=== PATIENT | female | born 1975 | race Caucasian/White ===

== ENCOUNTER 2017-08-23 20:00 | Inpatient (IN) | payer MEDICAID, OTHER, SELFPAY ==
[2017-08-23 20:29] VITALS: BMI 30.4
[2017-08-23] MEDS: Lactated Ringer's 1,000 ML IV SCH (20:45)
[2017-08-23] MEDS ORDERED: Ondansetron HCl/PF 4 MG/2 ML Vial IVP PRN (22:17)
[2017-08-23] MEDS ORDERED: HYDROcodone/Acetaminophen 5/325 mg Tablet PO PRN ×2 (22:17)
[2017-08-23] MEDS ORDERED: Ibuprofen 800 MG TAB PO PRN (22:17)
[2017-08-23] MEDS ORDERED: NS / Oxytocin 40 units/1000ml 1,000 ML IV PRN (22:17)
[2017-08-23] MEDS ORDERED: Lidocaine 1% (PF) 30 ML VIAL SC PRN (22:17)
[2017-08-23] MEDS ORDERED: Promethazine HCl 25 MG/ML VIAL IM PRN (22:17)
--- NOTE | 2017-08-23 22:23 | PDOC.LDHP ---
Labor and Delivery H&P Chief complaint: scheduled induction HPI: Patient is a 42yo at 38.6w by LMP/1t u/s with chronic HTN presents for IOL via TOLAC with cook balloon. Patient reports good FM, no LOF, VB, vaginal discharge, COHEN, LE edema, scotoma, or RUQ pain. She reports BP at home have been in the 130's/80's. Risks of TOLAC have been discussed with her PCP Dr. Lesley Dominique and patient had no further questions. Current gestational age (weeks): 38 (38.6) Due date: 08/31/17 Dating criteria: last menstrual period, first trimester ultrasound Grav: 3 Para: 2 OB History Details: first - delivered at 35wk with PPROM, breech, csection delivery second - successful TOLAC, complications of elevated BP during Current complications: hypertension Abnormal US findings: No Past Medical History: chronic HTN Current medications: pre-anabell vitamins Previous surgical history: low tranverse CS Social history: none - Physical Exam Vital signs reviewed and normal: yes General: NAD, resting Heart: other (systolic murmur, RRR) Lungs: CTAB Abdomen: NTTP Extremeties: trace edema FHT: category 1 [place] contractions every: none - Vaginal Exam cm dilated: 1 Effacement: 0% Station: -3 - OB Labs Blood type: O RH: positive Antibody Screen: negative HIV: negative RPR: negative HEPSAg: negative 1 hour GCT: negative GBS: negative Urine drug screen: not done Rubella: immune - Assessment L&D Assessment: medically indicated induction at 38.6 here for medically indicated induction due to chronic HTN. Will be a TOLAC, with hx of successful x1. sIUP: labs wnl chronic HTN: BP wnl, continue to monitor. AMA: declined quad screen. TOLAC: risks discussed in clinic and again today. Labor: cat 1 strip at this time, balloon placed at 2220 with 60ml in each balloon. Patient tolerated well. Continue routine labor management and q4h balloon checks. Plan for epidural for pain management. Consider augmentation with pitocin if needed upon further evaluation - Plan Plan: admit to L&D, labor augmentation if indicated <Halina Ruano - Last Filed: 08/23/17 22:21> <Alex Hunter - Last Filed: 08/23/17 23:07> Allergies/Adverse Reactions: Allergies Allergy/AdvReac Type Severity Reaction Status Date / Time No Known Allergies Allergy Verified 02/20/16 21:52 Attending Addendum - Attending Addendum Date/Time: 08/23/17 7102 I personally evaluated the patient and discussed the management with Dr. Ruano. I agree with and repeated the History, Examination, Assessment and Plan documented above with any addition or exceptions noted below. Patient understands risks of TOLAC - uterine rupture 1:150, catastrophic outcome , such as maternal or 1:1000, pain, bleeding, infection, prolonged hospitalization, risk for injury to surrounding structure and associated repair/ colostomy/FC placement, and risks associated with transfusion. Chronic hypertension, AMA, GBS negative. Cook balloon placed in sterile fashion with speculum and ring forceps. 60 cc/60 cc. Discussed in detail with Dr. Dominique. <Alex Hunter - Last Filed: 08/23/17 23:07>
[2017-08-23 23:04] LABS: Hemoglobin 11.8 g/dL (12.0-16.0); Mean Corpuscular HGB CONC 36.3 g/dL (32.0-36.0); Mean Corpuscular Volume 85.5 fL (78.0-98.0); Mean Platelet Volume 8.5 fL (7.4-10.4); Platelet Count 162 thou/uL (130-400); RBC Distribution Width 12.5 % (11.5-14.5); Red Blood Cell (RBC) Count 3.81 mill/uL (4.20-5.40); White Blood Cell (WBC) Count 5.3 thou/uL (4.8-10.8)
[2017-08-23 23:32] LABS: Syphilis Antibody Nonreactive (Nonreactive); Syphilis Antibody Index 0.04 S/CO (<1.00 Non-Reactive)
[2017-08-23 23:33] LABS: HBSAg Index 0.21 S/CO (0-0.99); Hep B Surf Ag Non-Reactive S/CO (NonReactive)
[2017-08-24] MEDS ORDERED: Butorphanol Tartrate 1 MG/ML VIAL SLOW IVP PRN (00:57)
[2017-08-24] MEDS ORDERED: DISCONTINUE ALL PREVIOUS NARCOTICS FS SCH (02:00)
[2017-08-24] MEDS: Lactated Ringer's 1,000 ML IV SCH ×4 (02:10→15:00)
--- NOTE | 2017-08-24 02:24 | PDOC.LDPN ---
Labor & Delivery Progress Note - Subjective Subjective: comfortable - Objective Vital signs reviewed and normal: yes General: NAD, resting Uterine fundus: palpable contractions Dilation: 4 FHT: category 1 [place] contractions every: q4-5 min - Assessment (1) Current Visit: Yes Status: Acute (2) Desires (vaginal after ) trial Code(s): O34.219 - MATERNAL CARE FOR UNSP TYPE SCAR FROM PREVIOUS DEL Current Visit: Yes Status: Acute -: at 38.6 here for medically indicated induction due to chronic HTN. Will be a TOLAC, with hx of successful x1. sIUP: IOL reviewed, wnl chronic HTN: BP slightly elevated at 140's systolic, continue to monitor. AMA: declined quad screen. TOLAC: risks discussed in clinic and again today. Labor: cat 1 strip at this time, balloon placed at 2220 with 60ml in each balloon, has progressed to 4cm in dilation. Continue routine labor management and q2h balloon checks. Plan for epidural for pain management. Consider augmentation with pitocin if needed upon further evaluation <Halina Ruano - Last Filed: 08/24/17 02:49> Attending Addendum - Attending Addendum Date/Time: 08/24/17618 I personally evaluated the patient and discussed the management with Dr. Ruano I agree with the History, Examination, Assessment and Plan documented above with any addition or exceptions noted below. Hold off on pitocin until balloon out and no change. Cat 1. <Alex Hunter - Last Filed: 08/24/17 06:20>
[2017-08-24] MEDS: Bupivacaine 0.75% 13.4 ML, fentaNYL Citrate/PF 400 MCG in Sodium Chloride 0.9% 78.6 ML EPIDURAL SCH ×3 (02:55→15:33)
[2017-08-24] MEDS ORDERED: Eucerin (Mineral Oil/Petrolatum,White) 30 gm Jar TOP PRN (02:58)
[2017-08-24] MEDS ORDERED: diphenhydrAMINE 50 MG/ML VIAL IVP PRN (02:58)
[2017-08-24] MEDS ORDERED: Naloxone HCl 0.4 mg/ml Vial IVP PRN ×2 (02:58)
[2017-08-24] MEDS ORDERED: Acetaminophen 325 MG TAB PO PRN (02:58)
[2017-08-24] MEDS ORDERED: ePHEDrine/0.9% NaCl/PF SYRINGE 50 mg/10 ml SLOW IVP PRN (02:58)
[2017-08-24] MEDS ORDERED: Lactated Ringer's 500 ML IV PRN (02:58)
[2017-08-24] MEDS ORDERED: Promethazine HCl 25 MG/ML VIAL IM PRN (02:58)
[2017-08-24] MEDS ORDERED: Ondansetron HCl/PF 4 MG/2 ML Vial IVP PRN (02:58)
[2017-08-24] MEDS ORDERED: fentaNYL Citrate/PF 400 MCG, Bupivacaine 0.5% 20 ML in Sodium Chloride 0.9% 72 ML EPIDURAL SCH (03:00)
[2017-08-24] MEDS ORDERED: Communication Order-Pharmacy FS SCH (03:00)
--- NOTE | 2017-08-24 05:00 | PDOC.LDPN ---
Labor & Delivery Progress Note - Subjective Subjective: comfortable - Objective Vital signs reviewed and normal: yes General: NAD Uterine fundus: palpable contractions Dilation: 5 Effacement: 50% Station: -2 FHT: category 1 [place] contractions every: 4-5min - Assessment (1) Current Visit: Yes Status: Acute (2) Desires (vaginal after ) trial Code(s): O34.219 - MATERNAL CARE FOR UNSP TYPE SCAR FROM PREVIOUS DEL Current Visit: Yes Status: Acute -: at 38.6 here for medically indicated induction due to chronic HTN. Will be a TOLAC, with hx of successful x1. sIUP: IOL reviewed, wnl chronic HTN: BP wnl, continue to monitor. AMA: declined quad screen. TOLAC: risks discussed in clinic and again today. Labor: cat 1 strip at this time, balloon placed at 2220 with 60ml in each balloon, removed now. SVE 5/60/-2. Continue routine labor management and q2h cervical checks. Epidural in place for pain management. Consider augmentation with pitocin if needed upon further evaluation. <Halina Ruano - Last Filed: 08/24/17 04:58> Attending Addendum - Attending Addendum Date/Time: 08/24/17622 I personally evaluated the patient and discussed the management with Dr. Ruano. I agree with the History, Examination, Assessment and Plan documented above with any addition or exceptions noted below. Cat 1, q4-5m, making some change after removal of balloon. If no change will evaluation for rupture, IUPC, and pitocin. <Alex Hunter - Last Filed: 08/24/17 06:23>
--- NOTE | 2017-08-24 07:50 | PDOC.LDPN ---
Labor & Delivery Progress Note - Objective Vital signs reviewed and normal: yes General: NAD, resting SVE: 5/50%/-2 FHT: category 1 [place] contractions every: q5-6 min - Assessment (1) Current Visit: Yes Status: Acute Qualifiers: Weeks of gestation: 39 weeks Qualified Code(s): Z3A.39 - 39 weeks gestation of -: 1) IUP @ 39 weeks admitted for induction due to cHTN- Balloon placed last night and removed early this morning. Pt comfortable. minimal change from prior exam. Will start pitocin and continue to monitor closely. AROM when head more engaged.
[2017-08-24] MEDS: NS w/ Oxytocin 10 units 500 ML IV SCH (08:02)
--- NOTE | 2017-08-24 10:44 | PDOC.LDPN ---
Labor & Delivery Progress Note - Subjective Subjective: comfortable - Objective Vital signs reviewed and normal: yes (123/68) General: NAD, resting Dilation: 6cm Effacement: 50% Station: -2 FHT: category 1 - Assessment (1) Desires (vaginal after ) trial Code(s): O34.219 - MATERNAL CARE FOR UNSP TYPE SCAR FROM PREVIOUS DEL Current Visit: Yes Status: Acute (2) Current Visit: Yes Status: Acute Qualifiers: Weeks of gestation: 39 weeks Qualified Code(s): Z3A.39 - 39 weeks gestation of Plan: resuscitative measures -: at 38.6 here for medically indicated induction due to chronic HTN. Will be a TOLAC, with hx of successful x1. sIUP: IOL reviewed, wnl chronic HTN: BP wnl, continue to monitor. AMA: declined quad screen. TOLAC: risks discussed in clinic and again today. Labor: cat 1 strip at this time, balloon placed at 2220 with 60ml in each balloon, removed 0300. SVE 6/50/-2, unchanged from last check. Epidural in place. - titrate up level of pitocin and continue q2 hr labor checks
--- NOTE | 2017-08-24 12:08 | PDOC.LDPN ---
Labor & Delivery Progress Note - Subjective Subjective: comfortable - Objective Vital signs reviewed and normal: yes General: NAD, resting Uterine fundus: non tender SVE: 6/80/-1 after AROM FHT: category 1, variability present [place] contractions every: 2-3 min AROM: clear fluid IUPC placed: yes Resuscitative measures: maternal position change - Assessment (1) Desires (vaginal after ) trial Code(s): O34.219 - MATERNAL CARE FOR UNSP TYPE SCAR FROM PREVIOUS DEL Current Visit: Yes Status: Acute (2) Current Visit: Yes Status: Acute QualifierTitle: Weeks of gestation: 39 weeks Qualified Code(s): Z3A.39 - 39 weeks gestation of (3) Chronic hypertension in obstetric context, antepartum Code(s): O10.919 - UNSP PRE-EXISTING HTN COMP , UNSP TRIMESTER Current Visit: Yes Status: Acute Plan: continue plan of care, pitocin for augmentation -: at 38.6wks here for medically indicated induction due to chronic HTN and desires for TOLAC. Prior OB hx sig for successful . Continue expectant mgmt and titrate pitocin per protocol. <Rina Argueta - Last Filed: 08/24/17 12:09> Attending Addendum - Attending Addendum Date/Time: 08/24/17 1309 I personally evaluated the patient and discussed the management with Dr. Argueta I agree with the History, Examination, Assessment and Plan documented above with any addition or exceptions noted below. Pt AROMed for moderate amount of clear fluid. IUPC placed. 6/80/-1, [place] FHT 120/moderate variability/accels present/no decels Cat I FHT, reassuring. Continue pitocin per TOLAC protocol Anticipate <Nicole Lemos - Last Filed: 08/24/17 13:11>
--- NOTE | 2017-08-24 13:47 | PDOC.LDPN ---
Labor & Delivery Progress Note - Subjective Subjective: vaginal pressure - Objective Abnormal vital signs: BP: 159/91 General: resting SVE: 7 Effacement: 90% Station: -1 FHT: category 2, variable decelerations [place] contractions every: 2 minutes - Assessment (1) Chronic hypertension in obstetric context, antepartum Code(s): O10.919 - UNSP PRE-EXISTING HTN COMP , UNSP TRIMESTER Current Visit: Yes Status: Acute (2) Desires (vaginal after ) trial Code(s): O34.219 - MATERNAL CARE FOR UNSP TYPE SCAR FROM PREVIOUS DEL Current Visit: Yes Status: Acute (3) Current Visit: Yes Status: Acute QualifierTitle: Weeks of gestation: 39 weeks Qualified Code(s): Z3A.39 - 39 weeks gestation of Plan: continue plan of care -: Pt making cervical change. Variable decels noted during cervical check, however have recovered with position changes. Continue labor augmentation with Pit. Will re-check in 2 hours or sooner if needed. Regarding pt's elevated BP, will rule out pre-e with labs including CBC, CMP, Uric acid, Urine protein/creatine. <Leonora Carver - Last Filed: 08/24/17 13:46> Attending Addendum - Attending Addendum Date/Time: 08/24/17 7592 I personally evaluated the patient and discussed the management with Dr. Carver I agree with the History, Examination, Assessment and Plan documented above with any addition or exceptions noted below. Patient undergoing TOLAC. Cat 2 tracing. Resuscitative measures taken. Pitocin stopped. tracing improved. BP reviewed over last hour. BP has been slowly rising and now above baseline. PreE labs performed. Patient denies symptoms of preE. On labs patient noted to have uric acid of 5.2 and urine pro/cr ratio of 0.344. Also platelets have decreased from 160s to 130s. Will discuss with PCP and managing attending but concern for superimposed preE. Will need to review baseline urine protein. At this time remains without severe features and no indication for mag sulfate. Alvaro <Nica Nicholson - Last Filed: 08/26/17 04:20>
[2017-08-24 14:25] LABS: Hemoglobin 12.1 g/dL (12.0-16.0); Mean Corpuscular HGB CONC 35.1 g/dL (32.0-36.0); Mean Corpuscular Hemoglobin 30.2 pg (27.0-31.0); Platelet Count 138 thou/uL (130-400); RBC Distribution Width 12.3 % (11.5-14.5); Red Blood Cell (RBC) Count 4.02 mill/uL (4.20-5.40); White Blood Cell (WBC) Count 8.8 thou/uL (4.8-10.8)
[2017-08-24] MEDS ORDERED: Lactated Ringer's 500 ML IV SCH (14:45)
[2017-08-24 14:46] LABS: ALT (SGPT) 8 U/L (8-55); AST (SGOT) 15 U/L (5-34); Albumin 3.3 g/dL (3.5-5.0); Alkaline Phosphatase 105 U/L (40-150); Anion Gap 11 mmol/L (10-20); BUN (Urea Nitrogen) 5 mg/dL (7.0-18.7); Bilirubin, Total 0.4 mg/dL (0.2-1.2); Calc. Creatinine Clearance 188 mL/min (70-130); Calcium 8.3 mg/dL (7.8-10.44); Carbon Dioxide 22 mmol/L (22-29); Chloride 105 mmol/L (98-107); Estimated GFR-MDRD Greater than 90; Glucose 79 mg/dL (70-105); Potassium 3.7 mmol/L (3.5-5.1); Protein, Total 6.3 g/dL (6.0-8.3); Sodium 134 mmol/L (136-145); Uric Acid 5.2 mg/dL (2.6-6.0)
[2017-08-24] MEDS ORDERED: Lidocaine 1% (PF) 30 ML VIAL ONE (15:04)
[2017-08-24 15:24] LABS: Creatinine, Urine 37.69 mg/dL (47-110)
[2017-08-24] MEDS: NS / Oxytocin 40 units/1000ml 1,000 ML IV SCH ×2 (15:45→18:15)
[2017-08-24] MEDS ORDERED: Milk Of Magnesia 30 ML UDCUP PO PRN (15:53)
[2017-08-24] MEDS ORDERED: Adacel (T-DAP) 0.5 ML VIAL IM ONE (15:53)
[2017-08-24] MEDS ORDERED: Lanolin Ointment 7 GM TUBE TOP PRN (15:53)
[2017-08-24] MEDS ORDERED: HYDROcodone/Acetaminophen 5/325 mg Tablet PO PRN (15:53)
[2017-08-24] MEDS ORDERED: Bisacodyl 10 MG SUPP PR PRN (15:53)
[2017-08-24] MEDS ORDERED: Benzocaine/Menthol 20-0.5% 60 ML CAN TOP PRN (15:53)
[2017-08-24] MEDS ORDERED: Ibuprofen 800 MG TAB PO SCH (16:00)
--- NOTE | 2017-08-24 16:03 | PDOC.OPDEL ---
OB Operative/Delivery Note Delivery Dr/Surgeon: Dr. Olvin Jewell, Dr. Leonora Carver Assist: Dr. Lesley Dominique (Attending) Pre-Delivery Diagnosis: medically indicated induction (chronic hypertension, TOLAC) Procedure/Post Delivery Dx: spontaneous vaginal delivery Weeks gestation: 39 Anesthesia: epidural - Findings A Sex: male - 1 min: 8 - 5 min: 9 - Additional Findings/Plan Placenta delivered: spontaneous Repaired Obstetrical Laceration: none Estimated blood loss: 150 Post delivery plan: routine recovery <Olvin Jewell - Last Filed: 08/24/17 16:01> Attending Addendum - Attending Addendum Date/Time: 08/24/172235 I was present and supervised the of a viable female over an intact perineum. Apgars 8/9. Placenta delivered spontaneously and intact. 3V cord. True knot noted in cord. and mother in stable condition. Residents: Tania Handley. EBL 150 mL <Lesley Dominique - Last Filed: 08/24/17 22:41>
[2017-08-24] MEDS: Ferrous Sulfate 325 MG TAB PO SCH (20:57)
[2017-08-24] MEDS: Docusate Calcium (SURFAK) 240 MG CAP PO SCH (21:19)
--- NOTE | 2017-08-25 01:33 | OP-2 ---
DELIVERING PHYSICIAN: Olvin Jewell MD and Leonora Carver MD ATTENDING: Lesley Dominique MD PROCEDURE: Spontaneous vaginal delivery. ANESTHESIA: Epidural. ESTIMATED BLOOD LOSS: 150 mL PREOPERATIVE DIAGNOSES: 1. Intrauterine in labor, term. 2. Trial of labor after . 3. Chronic hypertension. POSTOPERATIVE DIAGNOSES: 1. Term intrauterine , delivered. 2. Trial of labor after . 3. Chronic hypertension. INDICATIONS: A 42-year-old female G3, now P3, presented for induction secondary to chronic hypertens ion and TOLAC. DELIVERY NOTE: This 42-year-old female G3, P3-0-0-3, delivered a viable female infant at 39 weeks. Following an uneventful antepartum course, a vigorous female was delivered over an intact perineum in the right occipitoanterior position. The baby did have some variable decelerations before delivery resolved with scalp stim and fluid bolus. Anterior shoulder and the remainder of the body were deliv ered. No nuchal cord. There was a true knot in the cord. The head was held down and the mouth and nares were bulb suctioned. The cord was clamped after a 2-minute delayed clamping and cord cut and c ord blood collected. The placenta delivered intact in the presentation with a 3-vessel cord no mayda. Fundal massage was performed and the fundus was firm. Cervix and vagina were inspected and fou nd to be free of lacerations. Infant went to the nursery in good condition for routine care. Apgars were 8 and 9 at 1 and 5 minutes, respectively. The patient tolerated the delivery well and went to the unit after routine recovery care.
[2017-08-25 05:57] LABS: Hemoglobin 10.7 g/dL (12.0-16.0); Mean Corpuscular HGB CONC 34.5 g/dL (32.0-36.0); Mean Corpuscular Volume 86.8 fL (78.0-98.0); Mean Platelet Volume 8.1 fL (7.4-10.4); Platelet Count 135 thou/uL (130-400); RBC Distribution Width 12.4 % (11.5-14.5); Red Blood Cell (RBC) Count 3.55 mill/uL (4.20-5.40); White Blood Cell (WBC) Count 7.8 thou/uL (4.8-10.8)
[2017-08-25] MEDS: Ferrous Sulfate 325 MG TAB PO SCH ×2 (07:41→12:57)
[2017-08-25] MEDS: NS w/ Oxytocin 10 units 500 ML IV SCH (07:42)
[2017-08-25] MEDS: Docusate Calcium (SURFAK) 240 MG CAP PO SCH ×2 (09:10→21:11)
--- NOTE | 2017-08-25 10:37 | PDOC.PP ---
Post Progress Note Post Day #: 1 Subjective: Mother feels well this AM. She states she had some bleeding overnight, about equal to a regular period. She is walking and voiding without difficulty. is going well. No headaches, sob, swelling, or visual changes. PO intake tolerated: yes Flatus: no Ambulation: yes Vital Signs (12 hours) Temp Pulse Resp BP BP 08/25/17 08:20 98.0 F 70 16 08/25/17 07:30 98.0 F 70 16 126/73 08/25/17 05:30 98.4 F 67 16 125/72 08/24/17 23:46 97.4 F L 71 16 126/64 Weight Weight 83.007 kg - Physical Examination General: NAD Cardiovascular: no m/r/g, RRR Respiratory: clear to auscultation bilaterally, non-labored breathing Abdominal: + bowel sounds, no distention Fundus firm & at: 3 cm below the umbilicus Extremities: negative homans (B) Neurological: no gross focal deficits Psychiatric: normal affect Result Diagrams: 08/25/17 05:33 08/24/17 14:17 Additional Labs: Post Labs Blood Type O POSITIVE 08/23/17 20:37 Hep Bs Antigen Non-Reactive S/CO (NonReactive) 08/23/17 20:13 (1) Desires (vaginal after ) trial Code(s): O34.219 - MATERNAL CARE FOR UNSP TYPE SCAR FROM PREVIOUS DEL Status: Acute (2) Status: Acute QualifierTitle: Weeks of gestation: 39 weeks Qualified Code(s): Z3A.39 - 39 weeks gestation of (3) Chronic hypertension in obstetric context, antepartum Code(s): O10.919 - UNSP PRE-EXISTING HTN COMP , UNSP TRIMESTER Status : Acute (4) Vaginal after section Code(s): O34.219 - MATERNAL CARE FOR UNSP TYPE SCAR FROM PREVIOUS DEL Status: Acute - Assessment/Plan # Post day 1 - minimal bleeding - pain well controlled - breast feeding # Chronic HTN - pressures WNL, 120s systolic - will monitor for 1 more day - will consider mag if pressures rise to severe range - antepartum urine Pr/cr was 0.34 Dispo: 1 day <Olvin Jewell - Last Filed: 08/25/17 10:36> Weight Weight 83.007 kg Result Diagrams: 08/26/17 06:36 08/24/17 14:17 Additional Labs: Post Labs Blood Type O POSITIVE 08/23/17 20:37 Hep Bs Antigen Non-Reactive S/CO (NonReactive) 08/23/17 20:13 (1) Status: Acute Qualifiers: Weeks of gestation: 39 weeks Qualified Code(s): Z3A.39 - 39 weeks gestation of <Lesley Dominique - Last Filed: 08/27/17 20:36> Attending Addendum - Attending Addendum Date/Time: 08/27/172032 I personally evaluated the patient and discussed the management with Dr. Tania Jewell on 08/25/17 I agree with the History, Examination, Assessment and Plan documented above with any addition or exceptions noted below- Patient without complaints. Ambulating/ voiding without difficulty. Afebrile VSS A/P: 1) PPD #1 a/p ( successful)- continue routine care. Occasional elevated BP but not persistent. Continue to monitor overnight. <Lesley Dominique - Last Filed: 08/27/17 20:36>
[2017-08-25] MEDS: Lactated Ringer's 1,000 ML IV SCH ×2 (12:57→23:01)
[2017-08-25] MEDS ORDERED: Bupivacaine/Epinephrine 0.25% 30 ML VIAL ONE (15:08)
[2017-08-26 06:42] LABS: Hemoglobin 11.6 g/dL (12.0-16.0); Mean Corpuscular HGB CONC 35.3 g/dL (32.0-36.0); Mean Corpuscular Hemoglobin 30.6 pg (27.0-31.0); Mean Corpuscular Volume 86.7 fL (78.0-98.0); Mean Platelet Volume 7.3 fL (7.4-10.4); Platelet Count 151 thou/uL (130-400); RBC Distribution Width 12.3 % (11.5-14.5); Red Blood Cell (RBC) Count 3.79 mill/uL (4.20-5.40)
[2017-08-26 07:53] VITALS: TEMP 98
--- NOTE | 2017-08-26 08:10 | PDOC.PP ---
Addendum entered and electronically signed by Olvin Jewell MD 08/26/17 09:51: Chronic Htn with superimposed pre-eclamplsia - Pr/cr ratio 0.34, uric acid 5.2 - elevated BP - will send home with HCTZ Original Note: Post Progress Note Post Day #: 2 Subjective: This morning patient states she is doing well. She denies headache, sob, swelling, or visual changes. She states is going well. She has been ambulating and voiding without difficulty. Minimal to no bleeding. PO intake tolerated: yes Flatus: yes Ambulation: yes Vital Signs (12 hours) Temp Pulse Resp BP 08/26/17 07:51 98.0 F 70 20 145/83 H 08/26/17 06:00 73 18 141/79 H 08/26/17 00:59 97.8 F 67 18 133/81 Weight Weight 83.007 kg - Physical Examination General: NAD Cardiovascular: no m/r/g, RRR Respiratory: clear to auscultation bilaterally, non-labored breathing Abdominal: + bowel sounds, no distention Fundus firm & at: 3cm below umbilicus Extremities: negative homans (B) Neurological: no gross focal deficits Psychiatric: A&Ox3, normal affect Result Diagrams: 08/26/17 06:36 08/24/17 14:17 Additional Labs: Post Labs Blood Type O POSITIVE 08/23/17 20:37 Hep Bs Antigen Non-Reactive S/CO (NonReactive) 08/23/17 20:13 (1) Desires (vaginal after ) trial Code(s): O34.219 - MATERNAL CARE FOR UNSP TYPE SCAR FROM PREVIOUS DEL Status: Acute (2) Status: Acute QualifierTitle: Weeks of gestation: 39 weeks Qualified Code(s): Z3A.39 - 39 weeks gestation of (3) Chronic hypertension in obstetric context, antepartum Code(s): O10.919 - UNSP PRE-EXISTING HTN COMP , UNSP TRIMESTER Status : Acute (4) Vaginal after section Code(s): O34.219 - MATERNAL CARE FOR UNSP TYPE SCAR FROM PREVIOUS DEL Status: Acute - Assessment/Plan # Post day 2 - minimal bleeding - pain well controlled - breast feeding # Chronic HTN - one pressure to 141/78, platelets up to 151, asymptomatic - antepartum urine Pr/cr was 0.34 - D/C to close follow up <Olvin Jewell - Last Filed: 08/26/17 08:10> Vital Signs (12 hours) Temp Pulse Resp BP 08/26/17 12:00 98.0 F 67 18 157/87 H 08/26/17 07:51 98.0 F 70 20 145/83 H 08/26/17 07:45 98.0 F 70 20 Weight Weight 83.007 kg Result Diagrams: 08/26/17 06:36 08/24/17 14:17 Additional Labs: Post Labs Blood Type O POSITIVE 08/23/17 20:37 Hep Bs Antigen Non-Reactive S/CO (NonReactive) 08/23/17 20:13 <Nica Nicholson - Last Filed: 08/26/17 18:30> Attending Addendum - Attending Addendum Date/Time: 08/26/171828 I personally evaluated the patient and discussed the management with Dr. Jewell I agree with the History, Examination, Assessment and Plan documented above with any addition or exceptions noted below. Doing well. No complications. Ok for d/c to home. . Would like natural family planning for contraception. Follow up with Dr. Dominique in 2 wks. Alvaro <Nica Nicholson - Last Filed: 08/26/17 18:30>
[2017-08-26] MEDS: Ferrous Sulfate 325 MG TAB PO SCH (08:11)
[2017-08-26] MEDS: Lactated Ringer's 1,000 ML IV SCH (08:11)
[2017-08-26] MEDS: NS w/ Oxytocin 10 units 500 ML IV SCH (08:11)
[2017-08-26] MEDS: Docusate Calcium (SURFAK) 240 MG CAP PO SCH (08:56)
[2017-08-26 12:05] VITALS: BP 157/87
== END 2017-08-26 12:30 | disposition home or self-care (01) | DRG 775 ==
LOC: L&D 20:07 → 3SW 08-24 19:36
PROVIDERS: ADMIT Family Medicine; ATTEND Family Medicine
PROC: 10E0XZZ Delivery of Products of Conception, External Approach (ICD-10-PCS; principal; 2017-08-24)
PROC: 0U7C7ZZ Dilation of Cervix, Via Natural or Artificial Opening (ICD-10-PCS; 2017-08-24)
PROC: 10907ZC Drainage of Amniotic Fluid, Therapeutic from Products of Conception, Via Natural or Artificial Opening (ICD-10-PCS; 2017-08-24)
DX: O11.4 Pre-existing hypertension with pre-eclampsia, complicating childbirth (principal); O34.211 Maternal care for low transverse scar from previous cesarean delivery; O69.2XX0 Labor and delivery complicated by other cord entanglement, with compression, not applicable or unspecified; Z3A.38 38 weeks gestation of pregnancy; Z37.0 Single live birth
CPT/HCPCS: 36415; 51702; 80053; 82570; 84156; 84550; 85027; 86780; 86850; 86900; 86901; 87340; C1726; J0595; J2001; J3010; J7050; J7120